=== PATIENT | male | born 1945 | race Caucasian/White ===

== ENCOUNTER 2023-02-09 10:22 | Day surgery (SDC) | payer OTHER ==
[~2023-02-09] VITALS: Ht 177.8 cm; Wt 83.4 kg
[2023-02-09] MEDS ORDERED: LOSA50 PO (10:39)
[2023-02-09] MEDS ORDERED: Primidone50 MG PO (10:40)
[2023-02-09] MEDS ORDERED: METF500 PO (10:40)
[2023-02-09] MEDS ORDERED: ZOCOR20 MG PO (10:40)
[2023-02-09] MEDS ORDERED: HYDCHL25 PO (10:40)
[2023-02-09] MEDS ORDERED: ALLO300 PO (10:40)
[2023-02-09] MEDS ORDERED: Inderal40 MG PO (10:40)
== END 2023-02-09 12:33 | disposition home or self-care (01) ==
LOC: ORSCSDS 10:22
PROVIDERS: Student in an Organized Health Care Education/Training Program
PROC: 08RJ3JZ Replacement of Right Lens with Synthetic Substitute, Percutaneous Approach (ICD-10-PCS; principal; 2023-02-09 11:45)
DX: H25.13 Age-related nuclear cataract, bilateral (principal); H52.201 Unspecified astigmatism, right eye; I10 Essential (primary) hypertension; E11.9 Type 2 diabetes mellitus without complications; Z79.84 Long term (current) use of oral hypoglycemic drugs; Z79.899 Other long term (current) drug therapy
CPT/HCPCS: 82947; J2001; J2250; J3010; J3301; J7040; V2632

== ENCOUNTER 2023-02-16 07:59 | Day surgery (SDC) | payer OTHER ==
[~2023-02-16] VITALS: Ht 180.3 cm; Wt 82.6 kg
[~2023-02-16 07:59] MED LIST: ALLO300 PO; HYDCHL25 PO; Inderal40 MG PO; LOSA50 PO; METF500 PO; Primidone50 MG PO; ZOCOR20 MG PO
--- NOTE | 2023-02-16 09:00 | NUR ---
02/16/23 0901 Daisy Witt [id number] 1 DROP OF TETRACAINE ADMINISTERED TO THE L EYE, 0857 PLEDGET PLACED IN L EYE
== END 2023-02-16 10:32 | disposition home or self-care (01) ==
LOC: ORSCSDS 07:59
PROVIDERS: Student in an Organized Health Care Education/Training Program
PROC: 08RK3JZ Replacement of Left Lens with Synthetic Substitute, Percutaneous Approach (ICD-10-PCS; principal; 2023-02-16 09:30)
DX: E11.36 Type 2 diabetes mellitus with diabetic cataract (principal); H25.12 Age-related nuclear cataract, left eye; H52.202 Unspecified astigmatism, left eye; Z96.1 Presence of intraocular lens; I10 Essential (primary) hypertension; Z79.899 Other long term (current) drug therapy; G47.33 Obstructive sleep apnea (adult) (pediatric); Z79.84 Long term (current) use of oral hypoglycemic drugs
CPT/HCPCS: 82947; J2250; J3010; J7040; V2632